=== PATIENT | male | born 1970 | race Caucasian/White ===

== ENCOUNTER 2018-06-27 22:29 | Emergency (ER) | payer MEDICAID ==
[~2018-06-27] VITALS: Ht 177.8 cm; Wt 108.9 kg
--- NOTE | 2018-06-27 22:39 | NUR ---
PT AMB TO ER BED 2
[2018-06-27 22:40] VITALS: BP 164/109
--- NOTE | 2018-06-27 22:55 | NUR ---
PATIENT PRESENTS TO ED WITH 03/04 LUQ ABD PAIN X4 HOURS; +TENDERNESS; DENIES TRAUMA. PT WAS DIAGNOSED WITH HTN 6 MONTHS AGO, OUT OF PRESCRIPTION; LAST TIME PT TOOK HTN MED WAS 2 MONTHS AGO; CURRENT BP 172/113; PT STATES THE PAIN STARTED ON 06/10/18, HE HAS VISITED 2 OTHER HOSPITALS FOR THE SAME PAIN; WAS FIRST DX W/ GASTRITIS, AND THEN HTN. DENIES N/V/D; SKIN IS PINK/WARM/DRY; AAOX4 WITH EVEN AND STEADY GAIT; LUNGS CLEAR BL; HR EVEN AND REGULAR; PT DENIES ANY FEVER, CP, SOB, OR COUGH AT THIS TIME; PATIENT POSITIONED FOR COMFORT; HOB ELEVATED; BEDRAILS UP X1; BED DOWN. ER MD MADE AWARE OF PT STATUS. PMH: HTN RX: UNKNOWN
--- NOTE | 2018-06-27 23:17 | NUR ---
DR. DANG AT BEDSIDE FOR EVALUATION.
[2018-06-27] MEDS ORDERED: KETOROLAC 60 MG/2 ML VIAL IM ONE (23:20)
--- NOTE | 2018-06-27 23:21 | NUR ---
PT TAKEN TO X-RAY VIA WHEELCHAIR BY TECH.
[2018-06-27] MEDS ORDERED: LISI-420 PO (23:22)
--- NOTE | 2018-06-27 23:42 | NUR ---
PT SISTER AT BEDSIDE.
--- NOTE | 2018-06-28 00:11 | NUR ---
UA DONE-SENT TO LAB
[2018-06-28 00:21] VITALS: BP 155/99
--- NOTE | 2018-06-28 00:26 | NUR ---
Patient discharged with v/s stable. Written and verbal after care instructions given and explained. Patient alert, oriented and verbalized understanding of instructions. Ambulatory with steady gait. All questions addressed prior to discharge. ID band removed. Patient advised to follow up with PMD. Rx of LACTULOSE, MINERAL OIL given. Patient educated on indication of medication including possible reaction and side effects. Opportunity to ask questions provided and answered.
== END 2018-06-28 00:21 | disposition home or self-care (01) ==
LOC: MED 22:29
DX: K59.00 Constipation, unspecified (principal); I10 Essential (primary) hypertension; Z79.899 Other long term (current) drug therapy
CPT/HCPCS: 74022; 81002; 93005; 96372; 99283; J1885